=== PATIENT | female | born 1965 | race Caucasian/White ===

== ENCOUNTER 2023-04-05 23:20 | Emergency (ER) | payer SELFPAY ==
[2023-04-05] MEDS ORDERED: ALBUTEROL SO4 2.5/IPRATROPIUM 0.5 INH SOL 3 ML VIAL.NEB. NEB ONE (23:24)
[2023-04-05] MEDS ORDERED: methylPREDNISolone NA SUCC 125 MG/2 ML VIAL IVPB ONE (23:24)
[2023-04-05 23:28] VITALS: BP 152/91; PULSE 97; RESP 26; BMI 30.4
[2023-04-05] MEDS ORDERED: methylPREDNISolone NA SUCC 125 MG/2 ML VIAL ONE (23:29)
[2023-04-06] MEDS ORDERED: ALBUTEROL SO4 2.5/IPRATROPIUM 0.5 INH SOL 3 ML VIAL.NEB. NEB ONE ×5 (00:19→02:49)
[2023-04-06 01:28] LABS: BASO % 0.6 % (0-2.0); EOS % 5.7 % (0-4.5); HEMOGLOBIN 13.7 GM/dL (10.7-15.3); LYMPH % 17.6 % (8-40); MCHC 33.4 g/dl (32.0-36.0); MEAN CELL VOLUME 95.8 fl (80-96); MEAN PLT VOLUME 7.2 fl (7.5-11.1); MONO % 9.6 % (3.8-10.2); NEUT % 66.5 % (42.8-82.8); PLATELET COUNT 332 10^3/uL (134-434); RBC 4.28 M/mm3 (3.60-5.2); RDW 12.9 % (11.6-15.6); WHITE BLOOD COUNT 9.3 K/mm3 (4.0-10.0)
[2023-04-06 01:45] LABS: POTASSIUM 3.8 mmol/L (3.5-5.1)
[2023-04-06 01:47] LABS: ALBUMIN 3.5 g/dl (3.4-5.0); BLOOD UREA NITROGEN 13.7 mg/dL (7-18); CALCIUM 9.1 mg/dL (8.5-10.1)
[2023-04-06 01:51] LABS: CREATININE 0.7 mg/dL (0.55-1.3)
[2023-04-06 01:53] LABS: BILIRUBIN,TOTAL 0.3 mg/dL (0.2-1)
== END 2023-04-06 04:11 | disposition home or self-care (01) ==
LOC: FER 23:20
PROC: 3E033NZ Introduction of Analgesics, Hypnotics, Sedatives into Peripheral Vein, Percutaneous Approach (ICD-10-PCS; principal; 2023-04-05)
PROC: 3E0F7GC Introduction of Other Therapeutic Substance into Respiratory Tract, Via Natural or Artificial Opening (ICD-10-PCS; 2023-04-05)
PROC: 3E0F7GC Introduction of Other Therapeutic Substance into Respiratory Tract, Via Natural or Artificial Opening (ICD-10-PCS; 2023-04-06)
PROC: 3E0F7GC Introduction of Other Therapeutic Substance into Respiratory Tract, Via Natural or Artificial Opening (ICD-10-PCS; 2023-04-06)
PROC: 3E0F7GC Introduction of Other Therapeutic Substance into Respiratory Tract, Via Natural or Artificial Opening (ICD-10-PCS; 2023-04-06)
DX: J45.41 Moderate persistent asthma with (acute) exacerbation (principal); Z20.822 Contact with and (suspected) exposure to COVID-19
CPT/HCPCS: 0241U-QW; 36415; 71045-TC-FY; 80053; 85025; 99284-25